=== PATIENT | female | born 1990 | race Caucasian/White ===

== ENCOUNTER → 2018-11-04 | Outpatient (CLI) | payer MEDICAID | LOC: FIMAGING 09:28 | PROVIDERS: ATTEND Neurological Surgery | DX: S32.020D Wedge compression fracture of second lumbar vertebra, subsequent encounter for fracture with routine healing (principal); Z98.1 Arthrodesis status ==

== ENCOUNTER 2018-11-29 05:49 | Day surgery (SDC) | payer MEDICAID ==
[2018-11-29] MEDS ORDERED: GABAPENTIN 300 MG CAP PO ONE (06:35)
[2018-11-29] MEDS ORDERED: ceFAZolin 2 GM/DEXTROSE 100 ML IV ONE (06:35)
[2018-11-29] MEDS ORDERED: ACETAMINOPHEN 500 MG TAB PO ONE (06:35)
[2018-11-29] MEDS ORDERED: LR 1,000 ML IV ONE (06:36)
[2018-11-29] MEDS ORDERED: LIDOCAINE 1% 2 ML INJ ID PRN (06:36)
[2018-11-29] MEDS ORDERED: MIDAZOLAM 2 MG/2 ML VIAL IVP ONE (07:03)
--- NOTE | 2018-11-29 07:04 | PDANEPAE ---
ANE Past Medical History - Cardiovascular History Hx Hypertension: No Hx Arrhythmias: No Hx Chest Pain: No Hx Coronary Artery / Peripheral Vascular Disease: No Hx CHF / Valvular Disease: No Hx Palpitations: No - Pulmonary History Hx COPD: No Hx Asthma/Reactive Airway Disease: No Hx Recent Upper Respiratory Infection: No Hx Oxygen in Use at Home: No Hx Sleep Apnea: No Sleep Apnea Screening Result - Last Documented: Negative - Neurologic History Hx Cerebrovascular Accident: No Hx Seizures: No Hx Dementia: No - Endocrine History Hx Diabetes: No Hypothyroid: No Hyperthyroid: No Obesity: no - Renal History Hx Renal Disorders: No - Liver History Hx Hepatic Disorders: No - Neurological & Psychiatric Hx Hx Neurological and Psychiatric Disorders: No - Cancer History Hx Cancer: No - Congenital Disorder History Hx Congenital Disorders: No - GI History Hx Gastrointestinal Disorders: No - Other Health History Other Health History: ANEMIA - TAKES IRON. ACNE. ECZEMA - Chronic Pain History Chronic Pain: Yes (BACK PAIN) - Surgical History Prior Surgeries: SPINAL LUMBAR FUSION 01/2018. VENTRAL HERNIA 10/2017. CLAVICLE REPAIR 2017. [facility] HERNIA REPAIR 2018 ANE Review of Systems Review of Systems: - Exercise capacity METS (RN): 5 METS ANE Patient History - Allergies Allergies/Adverse Reactions: adhesive Allergy (Verified 11/29/18 06:46) SEVERE REDNESS,SWELLING,WELTS & BLISTERS - Home Medications Home Medications: Ibuprofen 11/19/18 [Last Taken 11/23/18] Isotretinoin 11/19/18 [Last Taken 11/28/18] Lo Loestrin Fe 1-10 Tablet 11/19/18 [Last Taken 11/29/18 05:15] - Smoking Hx Smoking Status: Current some day smoker - Family Anes Hx Family Hx Anesthesia Complications: NEG ANE Labs/Vital Signs - Vital Signs Height: 175.26 cm Weight: 61.235 kg ANE Physical Exam - Airway Neck exam: FROM Mallampati Score: Class 2 Mouth exam: normal dental/mouth exam - Pulmonary Pulmonary: no respiratory distress - Cardiovascular Cardiovascular: regular rate and rhythym - ASA Status ASA Status: II ANE Anesthesia Plan Anesthesia Plan: general endotracheal anesthesia
[2018-11-29] MEDS ORDERED: fentaNYL 250 MCG/5 ML INJ ONE (07:13)
[2018-11-29] MEDS ORDERED: PROPOFOL/EMULSION 500 MG/50 ML BOTTLE IV ONE (07:13)
[2018-11-29] MEDS ORDERED: LIDOCAINE 2% 5 ML SDV ONE (07:13)
[2018-11-29] MEDS ORDERED: ROCURONIUM 100 MG/10 ML VIAL ONE (07:13)
--- NOTE | 2018-11-29 07:13 | PDHPUP ---
History & Physical Update H&P update statement: This history and physical update is based on an assessment of the patient which was completed after admission or registration (within 24 hours), but prior to the surgery/procedure. H&P update: H&P reviewed & patient examined, no change in patient's condition since H&P completed
[2018-11-29] MEDS ORDERED: BUPIVACAINE/EPI 0.25% 30 ML SDV ONE (07:21)
[2018-11-29] MEDS ORDERED: THROMBIN (BOVINE) 20,000 UNIT VIAL TP ONE ×2 (07:21→08:17)
[2018-11-29] MEDS ORDERED: BACITRACIN 50,000 UNITS/10 ML SYR IRR ONE (07:22)
[2018-11-29] MEDS ORDERED: SCOPOLAMINE HYDROBROMIDE 1 MG/3 DAYS PATCH TD ONE (07:24)
[2018-11-29] MEDS ORDERED: CHLORHEXIDINE GLUC HIBICLENS 118 ML BTL TP ONE (07:36)
[2018-11-29] MEDS ORDERED: ONDANSETRON 4 MG/2 ML VIAL ONE ×2 (07:56→08:59)
[2018-11-29] MEDS ORDERED: DEXAMETHASONE 4 MG/ML VIAL ONE ×2 (07:56)
[2018-11-29] MEDS ORDERED: SCOPOLAMINE HYDROBROMIDE 1 MG/3 DAYS PATCH TD SCH (08:00)
[2018-11-29] MEDS ORDERED: GLYCOPYRROLATE 0.2 MG/1 ML VIAL ONE ×2 (08:29)
[2018-11-29] MEDS ORDERED: NEOSTIGMINE METHYLSULFATE 10 MG/10 ML MDV ONE (08:29)
[2018-11-29] MEDS ORDERED: fentaNYL 100 MCG/2 ML INJ IVP PRN (08:36)
[2018-11-29] MEDS ORDERED: NALOXONE HCL 0.4 MG/ML INJ IVP PRN (08:36)
[2018-11-29] MEDS ORDERED: HYDROCODONE/APAP 5/325 TAB PO PRN (08:36)
[2018-11-29] MEDS ORDERED: ONDANSETRON 4 MG/2 ML VIAL IVP PRN (08:55)
[2018-11-29] MEDS ORDERED: METHOCARBAMOL 1,000 MG in NS 50 ML IVP ONE (08:56)
[2018-11-29] MEDS ORDERED: SUGAMMADEX SODIUM 200 MG/2 ML VIAL IVP ONE (08:58)
[2018-11-29] MEDS ORDERED: PROMETHAZINE HCL 25 MG/ML INJ ONE (09:00)
[2018-11-29] MEDS: PROMETHAZINE HCL 25 MG/ML INJ IVP PRN ×2 (09:07→09:46)
--- NOTE | 2018-11-29 09:13 | POSTOPPROG ---
Post Op Note Date of Operation: 11/29/18 Surgeon: Kit Marroquin Dental Equipment Installer And Servicer: Sindhu Nick PA-C (Becca) Anesthesia: GET(General Endotracheal) Pre-op Diagnosis: Painful hardware Post-op Diagnosis: same Procedure: Removal of hardware L1-L3 Inf/Abcess present in the surg proc area at time of surgery?: No EBL: Minimal Complications: None observed SOAP Progress Note Assessment/Plan: Assessment: Plan: 11/29/18 09:10 S: Doing well. Pain well controlled. Has some nausea. O: NAD, VSS PERRL, EOMI Following commands MARVIN X4 BLE 5/5 SILT Incisions x 4 - c/d/i- dermabond glue in place A: 27 yo female sp L1-L3 hardware removeal P: -Optimize pain management -Discharge from PACU when criteria met -Scripts on chart -Advance diet as tolerated -Patient seen by Dr. Marroquin in PACU as well Objective: Vital Signs Temp Pulse Resp BP Pulse Ox 36.8 C 70 10 L 109/72 100 11/29/18 07:01 11/29/18 07:01 11/29/18 07:01 11/29/18 07:01 11/29/18 07:01
--- NOTE | 2018-11-29 09:37 | GOP ---
[f rep st] OPERATIVE REPORT DATE OF OPERATION: 11/29/2018 SURGEON: Kit Marroquin MD FIRE ALARM DISPATCHER: Sindhu Sanchez PA-C (Mirabelle). ANESTHESIA: General endotracheal. PREOPERATIVE DIAGNOSIS: Painful spinal hardware, status post L2 fracture. POSTOPERATIVE DIAGNOSIS: Painful spinal hardware, status post L2 fracture. PROCEDURE PERFORMED: Removal of posterior spinal hardware, L1-L3. FINDINGS: Successful hardware removal. SPECIMENS: There were no specimens. ESTIMATED BLOOD LOSS: 15 cc. INDICATIONS: The patient is a 27-year-old woman who suffered an L2 compression fracture while travel ing in [facility]. It is not entirely clear why she had percutaneous hardware placed, but now, a year a nd a half later, that hardware has become quite painful for her and is protruding in the back near he r skin. A CT scan revealed good healing of the fracture with very minimal loss of height. Therefore , I did not see any reason why we could not remove the hardware at this point. She comes electively today for this procedure. DESCRIPTION OF PROCEDURE: After informed consent was obtained from the patient, the patient was brou ght to the operating room, and a formal time-out was performed, identifying the patient by name, [facility] record number, and date of . Preoperative antibiotics were given. The endotracheal tube wa s placed, and general endotracheal anesthesia was smoothly induced. The patient was then turned to t he prone position on the Td table. All appropriate pressure points were padded and checked. Th e lumbar region was prepped and draped in a normal sterile fashion. The previous incisions were then opened over a short distance, and the fascia was opened using monopolar electrocautery. We used thi s to come down on the hardware, which we could feel. The cap screws were removed over the cross conn ofelia that was holding the cathryn, and the rods were able to be removed starting on the left and then on the right. Unfortunately, for this type of hardware, we did not have the insertion tools, and the s crews could not be disassembled, but we were able to back the screws out using a pair of pliers. Eac h screw was removed in its entirety, and there was no residual hardware. Each screw hole was then fi lled with some FloSeal, and any bleeding from the skin was controlled using bipolar electrocautery. The fascia was closed using interrupted 0 Vicryls. The deep dermis was closed using interrupted 2-0 Vicryls, and the skin was closed using Dermabond. The patient was then awakened in the operating leah m, where she was extubated and transferred to the PACU in stable condition. There were no operative complications. I was scrubbed and present for the entire procedure. All sponge and needle counts were correct at th e end of the case. FLUIDS: Per the anesthesia record. DRAINS: There were no drains. /[id number]/MODL
[2018-11-29 11:52] VITALS: BP 120/82
[2018-12-02] MEDS ORDERED: PATCH REMOVAL 1 EA PATCH TD SCH (07:48)
== END 2018-11-29 11:52 | disposition home or self-care (01) ==
LOC: FSGY 05:49
PROVIDERS: ATTEND Neurological Surgery
PROC: 0QP004Z Removal of Internal Fixation Device from Lumbar Vertebra, Open Approach (ICD-10-PCS; principal; 2018-11-29 07:15)
DX: T84.84XA Pain due to internal orthopedic prosthetic devices, implants and grafts, initial encounter (principal); F17.210 Nicotine dependence, cigarettes, uncomplicated
CPT/HCPCS: J0690; J1100; J2250; J2405; J2550; J2704; J2800; J3010